=== PATIENT | female | born 2000 | race Hispanic/Latino ===

== ENCOUNTER 2023-02-23 19:21 | Emergency (ER) | payer OTHER ==
[2023-02-23 19:59] LABS: Bilirubin Neg (Negative); Blood, Urine Negative (Negative); Clarity Clear (Clear); Glucose, Urine (Dipstick) Normal (Negative); Ketone, Urine 15 mg/dL (Negative); Leukocyte Negative (Negative); Nitrite Negative (Negative); Protein, Urine (Dipstick) 15 mg/dl (Neg-Trace); Urobilinogen Normal mg/dL (Less than 2)
[2023-02-23 20:00] LABS: #Basophils 0.1 10x3/uL (0.0-0.2); #Eosinphils 0.2 10x3/uL (0.0-0.5); #Monocytes 0.7 10x3/uL (0.0-1.1); #Neutrophils 7.4 10x3/uL (1.5-8.4); %Basophils 0.4 % (0.0-2.0); %Eosinophils 1.5 % (0.0-6.0); %Lymphocytes 26.6 % (18.0-47.0); %Monocytes 5.8 % (0.0-10.0); %Neutrophils 65.4 % (40.0-75.0); Hemoglobin 12.8 g/dL (12.0-15.5); Mean Corpuscular HGB CONC 33.5 g/dL (32.0-36.0); Mean Corpuscular Hemoglobin 28.7 pg (27.0-33.0); Mean Corpuscular Volume 85.7 fl (81.6-98.3); Mean Platelet Volume 9.1 fl (7.4-10.4); Platelet Count 325 10x3/uL (150-450); RBC Distribution Width 12.3 % (11.5-14.5); Red Blood Cell (RBC) Count 4.46 10x6/uL (3.90-5.03); White Blood Cell (WBC) Count 11.3 10x3/uL (3.5-10.5)
[2023-02-23 20:14] LABS: ALT (SGPT) 16 U/L (8-55); AST (SGOT) 13 U/L (5-34); Albumin 4.5 g/dL (3.5-5.0); Alkaline Phosphatase 48 U/L (40-110); Anion Gap 13 mmol/L (10-20); BUN (Urea Nitrogen) 10 mg/dL (7.0-18.7); Bilirubin, Total 0.5 mg/dL (0.2-1.2); Calc. Creatinine Clearance 0 mL/min (70-130); Calcium 10.1 mg/dL (7.8-10.44); Carbon Dioxide 23 mmol/L (22-29); Chloride 103 mmol/L (98-107); Estimated GFR 129; Globulin 3.2 g/dL (2.4-3.5); Glucose 81 mg/dL (70-105); Potassium 4.1 mmol/L (3.5-5.1); Protein, Total 7.7 g/dL (6.0-8.3); Sodium 135 mmol/L (136-145)
[2023-02-23] MEDS ORDERED: Acetaminophen 500 MG TAB ONE (20:43)
== END 2023-02-23 21:20 | disposition home or self-care (01) ==
LOC: CSHERS 19:21
DX: O20.8 Other hemorrhage in early pregnancy (principal); O99.891 Other specified diseases and conditions complicating pregnancy; R10.32 Left lower quadrant pain; O99.331 Smoking (tobacco) complicating pregnancy, first trimester; F17.210 Nicotine dependence, cigarettes, uncomplicated; Z3A.09 9 weeks gestation of pregnancy
CPT/HCPCS: 76856; 80053; 81003; 84702; 85025; 86900; 86901

== ENCOUNTER 2023-09-03 14:39 | Day surgery (SDC) | payer OTHER ==
[2023-09-03] MEDS ORDERED: hydrALAZINE 20 MG/ML VIAL SLOW IVP PRN (16:00)
[2023-09-03 16:17] LABS: Bilirubin Neg (Negative); Blood, Urine 250 (Negative); Clarity Bloody (Clear); Glucose, Urine (Dipstick) Normal (Negative); Ketone, Urine 15 mg/dL (Negative); Leukocyte 100 (Negative); Nitrite Negative (Negative); Protein, Urine (Dipstick) 100 mg/dl (Neg-Trace)
[2023-09-03 16:42] LABS: Bacteria/HPF 2+ HPF (None Seen); RBC/HPF Greater than 50 HPF (0-3); Squamous Epithelial 0-3 HPF (0-3)
[2023-09-03 16:43] LABS: Mucous/LPF 1+ LPF (<2+)
[2023-09-03] MEDS ORDERED: Cephalexin 500 MG CAP PO SCH (18:30)
== END 2023-09-03 18:10 | disposition home or self-care (01) ==
LOC: CSHLD/OP 14:39
PROVIDERS: ATTEND Family Medicine
DX: O23.43 Unspecified infection of urinary tract in pregnancy, third trimester (principal); N39.0 Urinary tract infection, site not specified; O47.1 False labor at or after 37 completed weeks of gestation; Z3A.37 37 weeks gestation of pregnancy
CPT/HCPCS: 81003; 81015

== ENCOUNTER 2023-09-09 14:41 | Inpatient (IN) | payer OTHER, SELFPAY ==
[~2023-09-09 14:41] MED LIST: Bupivacaine 0.25% HCL 30 ML VIAL ONE
[2023-09-09] MEDS ORDERED: Misoprostol 200 MCG TAB PR PRN (15:15)
[2023-09-09] MEDS ORDERED: hydrALAZINE 20 MG/ML VIAL SLOW IVP PRN ×2 (15:15→20:26)
[2023-09-09] MEDS ORDERED: Diphenoxylate HCl/Atropine Tablet PO PRN ×2 (15:15)
[2023-09-09] MEDS ORDERED: Ibuprofen 800 MG TAB PO PRN (15:15)
[2023-09-09] MEDS ORDERED: HYDROcodone/Acetaminophen 5/325 mg Tablet PO PRN ×2 (15:15)
[2023-09-09] MEDS ORDERED: Tranexamic Acid 1,000 MG/10 ML VIAL IVP PRN (15:15)
[2023-09-09] MEDS ORDERED: Lactated Ringer's 1,000 ML IV SCH (15:15)
[2023-09-09] MEDS ORDERED: Promethazine HCl 25 MG/ML VIAL IM PRN ×3 (15:15→20:26)
[2023-09-09] MEDS ORDERED: Carboprost 250 MCG/ML AMP IM PRN (15:15)
[2023-09-09] MEDS ORDERED: fentaNYL 50 mcg/mL 1 mL Vial SLOW IVP PRN (15:15)
[2023-09-09] MEDS ORDERED: Methylergonovine 0.2 MG/ML VIAL IM PRN (15:15)
[2023-09-09] MEDS ORDERED: Lidocaine 1% (PF) 30 ML VIAL SC PRN (15:15)
[2023-09-09] MEDS ORDERED: Acetaminophen 500 MG TAB PO PRN (15:15)
[2023-09-09] MEDS ORDERED: Ondansetron PF 4 MG/2 ML Vial IVP PRN ×3 (15:15→20:26)
[2023-09-09] MEDS ORDERED: Oxytocin 30 units/NS 500 ML 500 ML IV SCH ×2 (15:15→21:00)
[2023-09-09] MEDS ORDERED: Penicillin G Potassium 5 MILL.UNITS VIAL ONE (15:35)
[2023-09-09] MEDS ORDERED: Oxytocin 30 units/NS 500 ML 500 ML ONE (15:35)
[2023-09-09 15:38] LABS: Hematocrit 33.3 % (34.9-44.5); Mean Corpuscular Hemoglobin 28.2 pg (27.0-33.0); Mean Corpuscular Volume 85.4 fl (81.6-98.3); Mean Platelet Volume 9.9 fl (7.4-10.4); Platelet Count 367 10x3/uL (150-450); RBC Distribution Width 13.2 % (11.5-14.5); White Blood Cell (WBC) Count 10.9 10x3/uL (3.5-10.5)
[2023-09-09 15:51] VITALS: BMI 33.0
[2023-09-09] MEDS ORDERED: fentaNYL/Ropivacaine Epidural 100 ML ONE (16:09)
[2023-09-09 16:10] LABS: HBSAg Index 0.16 S/CO (0-0.99); Hep B Surf Ag - L&D Non-Reactive S/CO (NonReactive)
[2023-09-09 16:12] LABS: Syphilis Antibody Nonreactive (Nonreactive); Syphilis Antibody Index 0.05 S/CO (<1.00 Non-Reactive)
[2023-09-09] MEDS ORDERED: diphenhydrAMINE 50 MG/ML VIAL IVP PRN (17:43)
[2023-09-09] MEDS ORDERED: Naloxone HCl 0.4 mg/ml Vial IVP PRN ×2 (17:43)
[2023-09-09] MEDS ORDERED: ePHEDrine Sulfate 50 MG/10 ML VIAL SLOW IVP PRN (17:43)
[2023-09-09] MEDS ORDERED: Acetaminophen 325 MG TAB PO PRN (17:43)
[2023-09-09] MEDS ORDERED: Moisturizing Cream (Eucerin) 113 GM JAR TOP PRN (17:43)
[2023-09-09] MEDS ORDERED: Lactated Ringer's 500 ML IV PRN (17:43)
[2023-09-09] MEDS ORDERED: fentaNYL 2 mcg/Ropivacaine 0.2% Epidural 100 ML CADD EPIDURAL SCH (17:45)
[2023-09-09] MEDS ORDERED: Communication Order-Pharmacy FS SCH (17:45)
[2023-09-09] MEDS ORDERED: diphenhydrAMINE 25 MG CAP PO PRN (20:26)
[2023-09-09] MEDS ORDERED: Milk Of Magnesia 30 ML UDCUP PO PRN (20:26)
[2023-09-09] MEDS ORDERED: Boostrix 0.5 ML (Tdap) VIAL (>/=7 yrs of age) IM ONE (20:26)
[2023-09-09] MEDS ORDERED: Benzocaine-Menthol 82.5 ML CAN TOP PRN (20:26)
[2023-09-09] MEDS ORDERED: Lanolin Ointment 7 GM TUBE TOP PRN (20:26)
[2023-09-09] MEDS ORDERED: Bisacodyl 10 MG SUPP PR PRN (20:26)
[2023-09-09] MEDS: Docusate 100 MG CAP PO SCH (22:37)
[2023-09-09] MEDS: HYDROcodone/Acetaminophen 5/325 mg Tablet PO PRN (22:38)
[2023-09-10] MEDS: HYDROcodone/Acetaminophen 5/325 mg Tablet PO PRN ×3 (03:37→20:01)
[2023-09-10] MEDS: Ibuprofen 800 MG TAB PO SCH ×3 (03:37→21:30)
[2023-09-10] MEDS: Docusate 100 MG CAP PO SCH ×2 (09:03→20:01)
[2023-09-10] MEDS: Prenatal Vitamin 1 TAB PO SCH (09:03)
[2023-09-10] MEDS: Ferrous Sulfate 325 MG TAB PO SCH ×2 (09:05→17:19)
[2023-09-11] MEDS: HYDROcodone/Acetaminophen 5/325 mg Tablet PO PRN ×4 (00:16→17:58)
[2023-09-11] MEDS: Ibuprofen 800 MG TAB PO SCH ×2 (05:20→13:05)
[2023-09-11 08:10] VITALS: BP 113/67; TEMP 98.1
[2023-09-11] MEDS: Ferrous Sulfate 325 MG TAB PO SCH ×2 (09:06→17:59)
[2023-09-11] MEDS: Prenatal Vitamin 1 TAB PO SCH (09:22)
[2023-09-11] MEDS: Docusate 100 MG CAP PO SCH (09:22)
== END 2023-09-11 19:20 | disposition home or self-care (01) | DRG 807 ==
LOC: CSHLD/OP 14:41 → CSHLD 15:39 → CSHPP 21:50
PROVIDERS: ADMIT Family Medicine; ATTEND Family Medicine
PROC: 10E0XZZ Delivery of Products of Conception, External Approach (ICD-10-PCS; principal; 2023-09-09)
PROC: 10907ZC Drainage of Amniotic Fluid, Therapeutic from Products of Conception, Via Natural or Artificial Opening (ICD-10-PCS; 2023-09-09)
DX: O69.81X0 Labor and delivery complicated by cord around neck, without compression, not applicable or unspecified (principal); Z37.0 Single live birth; Z3A.38 38 weeks gestation of pregnancy
CPT/HCPCS: 51702; 85027; 86780; 86850; 86900; 86901; 87340; 99285; J2540; J2590; S0020